=== PATIENT | female | born 1950 | race Caucasian/White ===

== ENCOUNTER → 2016-04-10 | Outpatient (CLI) | payer MEDICARE ==
[~2016-04-10] MED LIST: ALBUAER3 INH; ALPR.5 PO; BENA25TA3 PO; NAPR250T PO; PAXI10TA2 PO; PULM90IN INH; SYMB80AE INH; TIZA4CAP3 PO; TRAZ150T75 PO; TRAZ50TA12 PO
--- NOTE | 2016-04-13 09:22 | RSPPFT ---
DATE OF PROCEDURE: 04/10/16 COMMENTS: VOLUMES DYNAMIC: FVC and FEV1 severely reduced. FLOWS: FEV1% normal; FEF 25-75 severely reduced. IMPRESSION: This appears to be predominantly a severe restrictive defect but there is improvement post-bronchodilator so there may be an obstructive element. Clinical correlation is required and full lung volumes would be helpful.
== END ==
LOC: HRSP 12:07
PROVIDERS: ATTEND Family Medicine
DX: R05 Cough (principal)
CPT/HCPCS: 94060

== ENCOUNTER 2018-05-08 10:55 | Inpatient (IN) ==
[2018-05-08] MEDS ORDERED: Sod Chloride 0.9% Inj 1,000 ML IV.SIG ONE (11:28)
--- NOTE | 2018-05-08 11:55 | ED ---
HPI General Chief complaint: Weakness Stated complaint: Weakness Time Seen by Provider: 05/08/18 11:28 Source: patient, RN notes reviewed and old records reviewed Mode of arrival: EMS Limitations: no limitations History of Present Illness HPI Narrative: 67-year-old female presents to the emergency department via EMS for evaluation of slurred speech and generalized weakness. Patient states she went to her primary care doctor for her monthly visit today. At her visit, she was noted to have a blood pressure of 78/40 and had been complaining of slurred speech for the past 2-3 days. Her primary care physician Dr. Freeman sent her to the emergency department for CVA. The patient reports that she fell last night due to weakness. She denies any syncope. Patient denies any headache. She does report some blurry vision. No chest pain or shortness of breath. No abdominal pain. No nausea, vomiting, diarrhea. She states that both of her legs are weak and feel heavy. She does live alone. She has history of rheumatoid arthritis, anxiety. She does state that she drank 3 beers last night , but does not typically drink. She denies any current tobacco use, is a former smoker. No drug use. Moderate severity. Family history non-contributory. MD Complaint: Reports generalized weakness Onset (ago): day(s) (2-3) Duration: constant Location: Reports generalized Severity: moderate Relieving factors: none Exacerbating factors: none Associated symptoms: Reports other (Slurred speech, fall due to weakness); Denies chest pain, confusion, dark stools, diaphoresis, dysuria, easy bruising, fever/chills, headaches, loss of appetite, nausea/vomiting, myalgias, rash, shortness of breath and syncope Related Data Home Medications Medication Instructions Recorded Confirmed prednisone 5 mg PO DAILY 10/23/17 05/08/18 atorvastatin 10 mg PO QPM 03/11/18 05/08/18 clonazepam [Klonopin] 1 mg PO TID 03/11/18 05/08/18 hydroxychloroquine 200 mg PO BID 05/08/18 05/08/18 sertraline 200 mg PO DAILY 05/08/18 05/08/18 tizanidine 4 mg PO Q6-8H PRN 05/08/18 05/08/18 Allergies Allergy/AdvReac Type Severity Reaction Status Date / Time No Known Allergies Allergy Verified 03/11/18 11:21 Review of Systems ROS: all other systems reviewed are negative Constitutional Denies fever(s) Eyes Reports blurry vision ENT Denies nasal congestion Cardiovascular Denies chest pain Respiratory Denies cough Gastrointestinal Denies nausea Genitourinary Denies dysuria Musculoskeletal Denies back pain Neurologic Reports abnormal speech, Denies confusion and Reports weakness Psychiatric Denies confusion [facility] Medical History Medical History Aftercare following left ankle joint replacement surgery (Acute) Anxiety (Acute) Depression (Acute) History of fracture of ankle (Acute) History of thyroid nodule (Acute) Rheumatoid arthritis (Acute) Surgical History Surgical History History of 2 sections (Acute) History of bilateral oophorectomy (Acute) History of hernia repair (Acute) History of left hip replacement (Acute) Family History Family History Father No problems noted. Social History Social History Substance History: No History of Abuse Smoking Status: Former smoker Tobacco Type: Cigarettes How Often Do You Have a Drink Containing Alcohol: 2 to 4 times a month Recent Travel in [facility] within the Last 8 Weeks: No Recent Out of Country Travel within the Last 8 Weeks: No Immunization History Tetanus Immunization: <5 Years Exam Narrative Exam Narrative: GENERAL: Well-nourished, well-developed female patient, afebrile. Patient is alert and oriented x3 SKIN: Focused skin assessment warm/dry. HEAD: Normocephalic. Atraumatic EYES: No scleral icterus. No injection or drainage. EOM intact NECK: Supple, trachea midline. No JVD or lymphadenopathy. CARDIOVASCULAR: Regular rate and rhythm without murmurs, gallops, or rubs. Bilateral radial and pedal pulses are 2+ RESPIRATORY: Breath sounds equal bilaterally. No accessory muscle use. Lung sounds are clear to auscultation GASTROINTESTINAL: Abdomen soft, non-tender, nondistended. MUSCULOSKELETAL: No cyanosis, or edema. Bilateral upper extremity strength 5/ 5. Bilateral lower extremity strength 3/5. All extremities are neurovascularly intact. BACK: Nontender without obvious deformity. No CVA tenderness. NEUROLOGICAL: Awake and alert. Cranial nerves II through XII intact. Sensory grossly within normal limits. Five out of 5 muscle strength in all muscle groups. Speech is slurred. Possible slight deviation of tongue to the left. Finger to nose is normal bilaterally. Unable to do heel to gross bilaterally due to extreme leg weakness. Course Initial Documented Vital Signs Temperature 97.5 F L 05/08/18 11:10 Pulse Rate 60 05/08/18 11:10 Respiratory Rate 20 05/08/18 11:10 Blood Pressure 100/56 L 05/08/18 11:10 Pulse Oximetry 98 05/08/18 11:10 Last Documented Vital Signs Temperature 97.5 F L 05/08/18 11:10 Pulse Rate 60 05/08/18 11:48 Respiratory Rate 20 05/08/18 11:10 Blood Pressure 100/56 L 05/08/18 11:10 Pulse Oximetry 98 05/08/18 11:48 Medical Decision Making LUCIA Attestation LUCIA supervised visit: Yes Attestation: I was present with the advanced practitioner during the management of this patient. I discussed the case with the advanced practitioner and agree with the findings and plan as documented in their note except as noted below. 67yF presenting with bilateral lower extremity weakness and slurred speech. The patient believes her symptoms began yesterday but does not know specific time of onset. Denies confusion, difficulty with word finding, facial droop, upper extremity numbness/ tingling/ weakness, or head trauma. Her NIHSS on my exam was 5 (+2 for bilateral lower extremity drift/ hits bed, + 1 for mild to moderate dysarthria). The dry transfer man revealed normal sinus with heart rate in the mid 60s as interpreted by me. The dry transfer man was ordered secondary to stroke-like symptoms and to rule out arrhythmia. Her workup shows negative non-contrast CTH, minor bibasilar atelectasis on CR, labs essentially unremarkable (including negative EtOH). CTA head/ neck is pending. This patient will need further workup and possible neurology consultation. She understands and agrees with plan. Case discussed with FP resident. MARCELLUS Narrative Medical decision making narrative: 67-year-old female presents to the emergency department via EMS for hypotension, slurred speech, generalized weakness. IV access is obtained. EKG, CBC, CMP, magnesium, TSH, CK, troponin, PTT, PT/INR, UA are ordered and pending. Chest x-ray, CT of the head are ordered and pending. Patient is given normal saline [address] Escobar will resume care and disposition of patient. Medical Screen Exam Complete: Yes Emergency Medical Condition: Yes Differential Diagnosis Differential Diagnosis: CVA vs. TIA vs. electrolyte abnormality vs. UTI vs. dehydration vs. alcohol intoxication vs. intracranial hemorrhage vs. pneumonia vs. sepsis Medical Records Medical records reviewed: Yes I reviewed the patient's medical records. Lab Data Result diagrams: 05/08/18 11:48 05/08/18 11:48 Lab Results 05/08/18 05/08/18 05/08/18 Range/Units 11:48 11:48 11:48 WBC 7.0 (4.0-11.0) th/mm3 RBC 3.52 L (4.00-5.30) mil/mm3 Hgb 10.3 L (11.6-15.3) gm/dL Hct 30.4 L (35.0-46.0) % MCV 86.3 (80.0-100.0) fL MCH 29.3 (27.0-34.0) pg MCHC 34.0 (32.0-36.0) % RDW 13.7 (11.6-17.2) % Plt Count 214 (150-450) th/mm3 MPV 7.8 (7.0-11.0) fL Neut % (Auto) 73.0 H (16.0-70.0) % Lymph % (Auto) 15.0 (9.0-44.0) % [place] % (Auto) 8.4 H (0.0-8.0) % Eos % (Auto) 3.0 (0.0-4.0) % Baso % (Auto) 0.6 (0.0-2.0) % Neut # (Auto) 5.1 (1.8-7.7) th/mm3 Lymph # (Auto) 1.1 (1.0-4.8) th/mm3 [place] # (Auto) 0.6 (0.0-0.9) th/mm3 Eos # (Auto) 0.2 (0.0-0.4) th/mm3 Baso # (Auto) 0.0 (0.0-0.2) th/mm3 WBC Differential . Differential Comment Auto diff final PT 10.4 (9.8-11.6) sec INR 1.0 Ratio APTT (23.4-31.7) sec Sodium 138 (136-145) meq/L Potassium 4.2 (3.5-5.1) meq/L Chloride 109 H (98-107) meq/L Carbon Dioxide 22.1 (21.0-32.0) meq/L Anion Gap 7 (5-15) meq/L BUN 17 (7-18) mg/dL Creatinine 0.90 (0.50-1.00) mg/dL Estimated GFR 63 L (>89) mL/min Random Glucose 112 H (74-106) mg/dL Calcium 7.5 L (8.5-10.1) mg/dL Magnesium 1.8 (1.5-2.5) mg/dL Total Bilirubin 0.1 L (0.2-1.0) mg/dL AST 19 (15-37) U/L ALT 20 (10-53) U/L Alkaline Phosphatase 116 (45-117) U/L Total Creatine Kinase 136 (26-192) U/L Troponin I Less than 0.02 L (0.02-0.05) ng/mL Total Protein 6.3 L (6.4-8.2) g/dL Albumin 3.1 L (3.4-5.0) g/dL TSH 3.450 (0.358-3.740) uIU/mL Urine Color (Yellw/Straw) Urine Clarity (Clear) Urine pH (5.0-8.5) Ur Specific [place] (1.002-1.035) Urine Protein (Neg-Trace) mg/dL Urine Glucose (UA) (Negative) mg/dL Urine Ketones (Negative) mg/dL Urine Occult Blood (Negative) Urine Nitrate (Negative) Urine Bilirubin (Negative) Urine Urobilinogen (Less than 2) mg/dL Ur Leukocyte Esterase (Negative) Urine RBC (0-3) /hpf Urine WBC (0-5) /hpf Ur Squamous Epith Cells (0-5) /hpf Hyaline Casts (0-3) /lpf Urine Mucus (Occasional) /lpf Micro UA Comment Ur Microscopic Review Urine Culture Comments Serum Alcohol (0-5) mg/dL 05/08/18 05/08/18 05/08/18 Range/Units 11:48 11:48 12:11 WBC (4.0-11.0) th/mm3 RBC (4.00-5.30) mil/mm3 Hgb (11.6-15.3) gm/dL Hct (35.0-46.0) % MCV (80.0-100.0) fL MCH (27.0-34.0) pg MCHC (32.0-36.0) % RDW (11.6-17.2) % Plt Count (150-450) th/mm3 MPV (7.0-11.0) fL Neut % (Auto) (16.0-70.0) % Lymph % (Auto) (9.0-44.0) % [place] % (Auto) (0.0-8.0) % Eos % (Auto) (0.0-4.0) % Baso % (Auto) (0.0-2.0) % Neut # (Auto) (1.8-7.7) th/mm3 Lymph # (Auto) (1.0-4.8) th/mm3 [place] # (Auto) (0.0-0.9) th/mm3 Eos # (Auto) (0.0-0.4) th/mm3 Baso # (Auto) (0.0-0.2) th/mm3 WBC Differential Differential Comment PT (9.8-11.6) sec INR Ratio APTT 24.3 (23.4-31.7) sec Sodium (136-145) meq/L Potassium (3.5-5.1) meq/L Chloride (98-107) meq/L Carbon Dioxide (21.0-32.0) meq/L Anion Gap (5-15) meq/L BUN (7-18) mg/dL Creatinine (0.50-1.00) mg/dL Estimated GFR (>89) mL/min Random Glucose (74-106) mg/dL Calcium (8.5-10.1) mg/dL Magnesium (1.5-2.5) mg/dL Total Bilirubin (0.2-1.0) mg/dL AST (15-37) U/L ALT (10-53) U/L Alkaline Phosphatase (45-117) U/L Total Creatine Kinase (26-192) U/L Troponin I (0.02-0.05) ng/mL Total Protein (6.4-8.2) g/dL Albumin (3.4-5.0) g/dL TSH (0.358-3.740) uIU/mL Urine Color Yellow (Yellw/Straw) Urine Clarity Clear (Clear) Urine pH 6.0 (5.0-8.5) Ur Specific [place] 1.008 (1.002-1.035) Urine Protein Negative (Neg-Trace) mg/dL Urine Glucose (UA) Negative (Negative) mg/dL Urine Ketones Negative (Negative) mg/dL Urine Occult Blood Negative (Negative) Urine Nitrate Negative (Negative) Urine Bilirubin Negative (Negative) Urine Urobilinogen Less than 2 (Less than 2) mg/dL Ur Leukocyte Esterase Negative (Negative) Urine RBC Less than 1 (0-3) /hpf Urine WBC 1 (0-5) /hpf Ur Squamous Epith Cells <1 (0-5) /hpf Hyaline Casts 42 (0-3) /lpf Urine Mucus Few H (Occasional) /lpf Micro UA Comment Cath-culture not ind Ur Microscopic Review Not Reportable Urine Culture Comments Cath-cult not ind Serum Alcohol Less than 3 (0-5) mg/dL Imaging Data Radiologist's impression: Chest X-Ray 05/08/18 11:28 CONCLUSION: 1. Bibasilar streakiness is noted consistent with atelectasis and/or scarring. 2. Cardiomegaly. 3. Degenerative changes and scoliosis of the thoracolumbar spine. Head CT 05/08/18 11:28 CONCLUSION: 1. Negative CT Head non contrast. . . ECG Data Attestation: I personally reviewed and interpreted this ECG as follows: Interpretation: Rate: 62 BPM Rhythm: Sinus [place]: Normal Intervals: Normal intervals, no blocks, QTc 500 ms Q waves: None T waves: Upright, no inversions ST segments: No elevations or depressions Impression: Non-specific EKG, no previous EKG available for comparison. Discharge Plan Discharge Disposition Patient Disposition: ED Admit(ED Internal Use Only) Discharge Condition Condition: Stable Discharge Order Discharge Orders: ED Use Only Admit Order (Routine); Ordered 05/08/18 Ordered By: Tatiana Escobar Discharge Details Diagnosis: Slurred speech, Bilateral leg weakness Physicians Team ED Provider: Tatiana Escobar ED Midlevel Provider: Gini Yanez Primary Care Provider: UNKNOWN, Rxs /Orders / Referrals /Forms Prescriptions: No Action prednisone 1 mg Tablet 5 mg PO DAILY RF: 0 atorvastatin 10 mg Tablet 10 mg PO QPM RF: 0 clonazepam [Klonopin] 0.5 mg Tablet 1 mg PO TID RF: 0 tizanidine 4 mg Tablet 4 mg PO Q6-8H PRN (Reason: Pain) RF: 0 sertraline 100 mg Tablet 200 mg PO DAILY RF: 0 hydroxychloroquine 200 mg Tablet 200 mg PO BID RF: 0 Status ED Status: Pending Admission
[2018-05-08 12:06] LABS: Baso % (Auto) 0.6 % (0.0-2.0); Eos # (Auto) 0.2 th/mm3 (0.0-0.4); Hematocrit 30.4 % (35.0-46.0); Hemoglobin 10.3 gm/dL (11.6-15.3); Lymph # (Auto) 1.1 th/mm3 (1.0-4.8); Mean Corpuscular Hemoglobin 29.3 pg (27.0-34.0); Mean Corpuscular Volume 86.3 fL (80.0-100.0); Mean Platelet Volume 7.8 fL (7.0-11.0); Mono # (Auto) 0.6 th/mm3 (0.0-0.9); Mono % (Auto) 8.4 % (0.0-8.0); Neut # (Auto) 5.1 th/mm3 (1.8-7.7); Platelet Count 214 th/mm3 (150-450); Red Blood Count 3.52 mil/mm3 (4.00-5.30); Red Cell Distribution Width 13.7 % (11.6-17.2)
[2018-05-08 12:18] LABS: Prothrombin Time 10.4 sec (9.8-11.6)
[2018-05-08 12:23] LABS: Alanine Aminotransferase 20 U/L (10-53)
[2018-05-08 12:33] LABS: Alkaline Phosphatase 116 U/L (45-117); Creatine Kinase 136 U/L (26-192); Total Protein 6.3 g/dL (6.4-8.2)
[2018-05-08 12:34] LABS: Albumin 3.1 g/dL (3.4-5.0); Anion Gap 7 meq/L (5-15); Aspartate Aminotransferase 19 U/L (15-37); Blood Urea Nitrogen 17 mg/dL (7-18); Calcium 7.5 mg/dL (8.5-10.1); Carbon Dioxide 22.1 meq/L (21.0-32.0); Chloride 109 meq/L (98-107); Glomerular Filtration Rate 63 mL/min (>89); Glucose,Random 112 mg/dL (74-106); Magnesium 1.8 mg/dL (1.5-2.5); Potassium 4.2 meq/L (3.5-5.1); Sodium 138 meq/L (136-145)
[2018-05-08 12:51] LABS: Bilirubin,Urine Negative (Negative); Clarity,Urine Clear (Clear); Color,Urine Yellow (Yellw/Straw); Glucose,Urine (UA) Negative (Negative); Hyaline Casts,Urine 42 /lpf (0-3); Leukocyte Esterase,Urine Negative (Negative); Mucus,Urine Few /lpf (Occasional); Nitrite,Urine Negative (Negative); Specific Gravity,Urine 1.008 (1.002-1.035); Squamous Epithelial Cell,Urine <1 /hpf (0-5)
--- NOTE | 2018-05-08 12:56 | CT ---
EXAM DATE: 05/08/2018 12:36 PM EST AGE/SEX: 67 years / Female INDICATIONS: Weakness for six month slurred speech for three days, low blood pressure. CLINICAL DATA: This is the patient's initial encounter. Patient reports that signs and symptoms have been present for 1 day and indicates a pain score of 1/10. MEDICAL/SURGICAL HISTORY: Arthritis. section. oophorectomy hernia repair RADIATION DOSE: 56.35 CTDI (mGy) COMPARISON: [facility], CT HEAD W/O CONTRAST, 03/11/2018. . TECHNIQUE: CT of the head without contrast. Using automated exposure control and adjustment of the mA and/or kV according to patient size, radiation dose was kept as low as reasonably achievable to ob tain optimal diagnostic quality images. DICOM format image data is available electronically for revi ew and comparison. FINDINGS: Cerebrum: The ventricles are normal for age. No evidence of midline shift, mass lesion, hemorrhage or acute infarction. No extraaxial fluid collections are seen. Posterior Fossa: The cerebellum and brainstem are intact. The 4th ventricle is midline. The cerebe llopontine angle is unremarkable. Extracranial: The visualized portion of the orbits is intact. Skull: The calvaria is intact. No evidence of skull fracture. CONCLUSION: 1. Negative CT Head non contrast. . . Electronically signed by: Tristen Grigsby MD Board Certified Radiologist 05/08/2018 12:55 PM EST
--- NOTE | 2018-05-08 12:58 | XR ---
EXAM DATE: 05/08/2018 12:36 PM EST AGE/SEX: 67 years / Female INDICATIONS: Weakness. Patient states she is having slurred speech and heaviness in legs with diffic ulty lifting them. CLINICAL DATA: This is the patient's initial encounter. Patient reports that signs and symptoms have been present for 2 days and indicates a pain score of 0/10. MEDICAL/SURGICAL HISTORY: . Thyroid nodule. . section. Hernia repair. Bilateral ooph orectomy. Left hip repair. COMPARISON: No prior exams available for comparison. FINDINGS: The heart is enlarged. The pulmonary vascular pattern is normal. Bibasilar streakiness is noted consi stent with atelectasis and/or scarring. No focal alveolar consolidation is noted. Degenerative change s and scoliosis of thoracolumbar spine are noted. CONCLUSION: 1. Bibasilar streakiness is noted consistent with atelectasis and/or scarring. 2. Cardiomegaly. 3. Degenerative changes and scoliosis of the thoracolumbar spine. Electronically signed by: Tristen Grigsby MD Board Certified Radiologist 05/08/2018 12:57 PM EST
[2018-05-08 13:31] LABS: Amphetamine Screen,Urine Neg (Neg); Barbiturate Screen,Urine Neg (Neg); Cannabinoid Screen,Urine Neg (Neg); Cocaine Screen,Urine Neg (Neg)
[2018-05-08 13:36] LABS: Opiate Screen,Urine Neg (Neg)
--- NOTE | 2018-05-08 14:04 | P.HPFP ---
History of Present Illness Primary Care Physician: UNKNOWN <ZacharyLoydRuth - 05/09/18 14:49> UNKNOWN <Coy Amanda Mejia - 05/08/18 14:04> History of Present Illness: 67 yr old F with rheumatoid arthritis, PTSD, anxiety presents to the ED from primary care office for neuro symptoms. Patient was seen by Dr. Freeman, PCP, this morning for check up. Patient had low blood pressure or 72/40, problems with speech, decreased right nasolabial fold, and b/l lower extremity weakness. Patient was sent over immediately to the ED for stroke workup. Reports that she was confused when she woke up this morning. States that she last felt normal around possibly 8am. She felt exhausted and weak. Didn't make much of it since she was going to see her primary doctor. She drove to the office, but describes that it was difficult. She has felt dizzy the last couple of days. Patient is alert and oriented. Able to answer questions appropriately and follow commands. Speech has improved, but still slow. Still reports b/l leg weakness. Denies ROUSE, vision changes, CP, SOB, N/V, numbness/tingling and abdominal pain. PMHx: RA on daily prednisone Anxiety Insomnia PTSD Onychomycosis Muscle spasms PSHx: h/o ankles surgery, left hip replacement Meds: clonazepam 1mg TID hydroxychloroquine 200mg BID Pravastatin 10mg daily Prednisone 5mg daily Sertraline 100mg BID Tizanidine 4mg q8h as needed Allergies: NKDA FHx: father in 2017 SHx: current smoker 1 cigarette in 2 weeks <Coy Keaton Mejian Broderick 05/08/18 15:50> - Diagnosis (1) Neurocognitive deficits (2) Rheumatoid arthritis (3) Anxiety <Ruth Sharma - 05/09/18 14:49> (1) Neurocognitive deficits (2) Rheumatoid arthritis (3) Anxiety <Coy Keaton Mejiaadam Broderick 05/08/18 15:52> Inpatient Certification: I certify that the inpatient services were ordered in accordance with Medicare regulations governing the order. 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 <Coy Keaton Mejiaadam Quick 05/08/18 14:04> - Medical History Medical History: Medical History (Last Reviewed 05/08/18 @ 13:05 by Tatiana Escobar DO) Aftercare following left ankle joint replacement surgery Anxiety Depression History of fracture of ankle History of thyroid nodule Rheumatoid arthritis <Ruth Sharma Bessie 05/09/18 14:49> Medical History (Last Reviewed 05/08/18 @ 13:05 by Tatiana Escobar DO) Aftercare following left ankle joint replacement surgery Anxiety Depression History of fracture of ankle History of thyroid nodule Rheumatoid arthritis <Coy Keaton Mejiaadam Broderick 05/08/18 14:04> - Surgical History Surgical History: Surgical History (Last Reviewed 05/08/18 @ 13:05 by Tatiana Escobar DO) History of 2 sections History of bilateral oophorectomy History of hernia repair History of left hip replacement <ZacharyRuth martino Bessie 05/09/18 14:49> Surgical History (Last Reviewed 05/08/18 @ 13:05 by Tatiana Escobar DO) History of 2 sections History of bilateral oophorectomy History of hernia repair History of left hip replacement <Coy Keaton Mejiaadam Broderick 05/08/18 14:04> - Family History Family History: Family History (Last Reviewed 05/08/18 @ 13:05 by Tatiana Escobar DO) Father No problems noted. <ZacharyRuth Bessie Ellsworth 05/09/18 14:49> Family History (Last Reviewed 05/08/18 @ 13:05 by Tatiana Escobar DO) Father No problems noted. <Coy JackieAmandajuan Quick 05/08/18 14:04> - Social History I have reviewed the patient's Social History: Yes <Coy JackieAmanda Broderick Ynes 05/08 15:30> - Tobacco History Tobacco Use In Past 30 Days: No <Amanda Archer 05/08/18 14:04> Smoking Status: Former smoker <Amanda Archer 05/08/18 14:04> Tobacco Type: Cigarettes <Amanda Archer 05/08/18 14:04> - Alcohol History How Often Do You Have a Drink Containing Alcohol: 2 to 4 times a month <Amanda Archer 05/08/18 14:04> - Substance Use History Substance History: No History of Abuse <Amanda Archer 05/08/18 14:04> - Travel History Recent Travel in the [facility] Within the Last 8 Weeks: No <Amanda Archer 14:04> Recent Travel Out of the Country Within the Last 8 Weeks: No <Amanda Archer 05/08/18 14:04> - Immunization History Tetanus Immunization: <5 Years <Amanda Archer 05/08/18 14:04> Medications and Allergies Allergies Allergy/AdvReac Type Severity Reaction Status Date / Time No Known Allergies Allergy Verified 03/11/18 11:21 <Ruth Sharma - 05/09/18 14:49> Home Medications Medication Instructions Recorded Confirmed Type prednisone 5 mg PO DAILY 10/23/17 05/08/18 History atorvastatin 10 mg PO QPM 03/11/18 05/08/18 History clonazepam [Klonopin] 1 mg PO TID 03/11/18 05/08/18 History hydroxychloroquine 200 mg PO BID 05/08/18 05/08/18 History sertraline 200 mg PO DAILY 05/08/18 05/08/18 History tizanidine 4 mg PO Q6-8H PRN 05/08/18 05/08/18 History <Ruth Sharma - 05/09/18 14:49> Active Medications: Active Medications Aspirin (Aspirin) 325 mg PO DAILY [facility] Last Admin: 05/09/18 08:48 Dose: 325 mg Clonazepam (Klonopin) 1 mg PO TID [facility] Last Admin: 05/09/18 13:19 Dose: 1 mg Dextrose (D50w Vial) 50 ml IV.PUSH UNSCH PRN PRN Reason: PER HYPOGLYCEMIA PROTOCOL Enoxaparin Sodium (Lovenox Inj) 40 mg SQ Q24H [facility] Last Admin: 05/09/18 09:48 Dose: 40 mg Glucagon (Glucagon Inj) 1 mg OTHER UNSCH PRN PRN Reason: for Hypoglycemia Protocol Hydroxychloroquine Sulfate (Plaquenil) 200 mg PO BID [facility] Last Admin: 05/09/18 09:48 Dose: 200 mg Sodium Chloride (Ns Inj) 1,000 mls @ 70 mls/hr IV.CONT .[id number] [facility] Last Admin: 05/09/18 09:30 Dose: 70 mls/hr Insulin Aspart (Novolog Insulin Correctional Sugar Inj) 0 unit SQ ACHS [facility]; Protocol Last Admin: 05/09/18 13:23 Dose: Not Given Pravastatin Sodium (Pravachol) 40 mg PO HS [facility] Prednisone (Deltasone) 5 mg PO DAILY [facility] Last Admin: 05/09/18 09:47 Dose: 5 mg Sertraline HCl (Zoloft) 200 mg PO HS [facility] Last Admin: 05/08/18 23:42 Dose: 200 mg Sodium Chloride (Ns Flush) 2 ml IV.FLUSH BID [facility] Last Admin: 05/09/18 08:49 Dose: 2 ml Sodium Chloride (Ns Flush) 2 ml IV.FLUSH PRN PRN PRN Reason: FLUSH AFTER USING IV ACCESS Tizanidine HCl (Zanaflex) 4 mg PO Q6HR PRN PRN Reason: PAIN 1-10 Last Admin: 05/08/18 23:43 Dose: 4 mg <Ruth Sharma - 05/09/18 14:49> Active Medications Sodium Chloride (Ns Flush) 2 ml IV.FLUSH PRN PRN PRN Reason: FLUSH AFTER USING IV ACCESS <Amanda Archer T - 05/08/18 14:04> Exam Vital signs: Vital Signs 05/08/18 16:00 05/08/18 20:00 05/08/18 22:50 Temperature 97.9 F 97.8 F Pulse Rate 66 87 81 Respiratory Rate 16 20 Blood Pressure 113/73 109/71 Pulse Oximetry 100 97 05/09/18 00:00 05/09/18 04:00 05/09/18 08:00 Temperature 97.7 F 97.9 F 97.6 F Pulse Rate 67 99 H 77 Respiratory Rate 20 18 16 Blood Pressure 112/78 124/75 121/76 Pulse Oximetry 97 95 100 05/09/18 09:30 05/09/18 11:58 Temperature 98.1 F Pulse Rate 82 Respiratory Rate 15 Blood Pressure 142/72 H Pulse Oximetry 99 97 Intake & Output 05/08/18 05/09/18 05/09/18 18:59 06:59 18:59 Intake Total 1000 / 1000 1999 Balance 1000 / 1000 1999 Weight 72.575 kg 72.575 kg Intake: IV 1000 / 1000 1999 NS Inj 1,000 ML @ 70 mls/hr IV. 1999 CONT .[id number] E[facility] Rx#:[id number] NS Inj 1,000 ML @ Wide Open IV. 1000 / 1000 SIG BOLUS ONE Rx#:[id number] Other: # Voids 3 Weight On Admission 72.575 kg <Ruth Sharma M - 05/09/18 14:49> Vital Signs 05/08/18 11:10 05/08/18 11:48 05/08/18 13:43 Temperature 97.5 F L Pulse Rate 60 60 68 Respiratory Rate 20 18 Blood Pressure 100/56 L 115/70 Pulse Oximetry 98 98 96 Intake & Output 05/07/18 05/08/18 05/08/18 18:59 06:59 18:59 Intake Total 1000 / 1000 Balance 1000 / 1000 Weight 90.718 kg Intake: IV 1000 / 1000 NS Inj 1,000 ML @ Wide Open IV. 1000 / 1000 SIG BOLUS ONE Rx#:[id number] <Van R2,Amanda Broderick T - 05/08/18 14:04> - Constitutional no acute distress <Van R2,Amanda Broderick T - 05/08/18 15:30> - Routine HEENT Exam Head: Present: normocephalic, atraumatic <Van R2,Amanda Broderick T - 05/08/18 15:30 > Eye: Present: EOMI, PERRL, normal accommodation <Van R2,Amanda Broderick T - 15:30> - Routine Neck Exam Present: supple, full ROM <Van R2,Amanda Broderick T - 05/08/18 15:30> - Routine Respiratory Exam Present: CTA bilaterally. Absent: wheezes, crackles <Van R2,Amanda Broderick T 15:30> - Routine Cardiovascular Exam Present: RRR, S1, S2. Absent: murmur, gallop, rubs <Amanda Archer 15:30> - Routine Abdominal Exam Present: soft, normoactive bowel sounds. Absent: tenderness, distended <Amanda Archer 05/08/18 15:30> - Routine Extremities Exam Absent: cyanosis, clubbing, edema <Amanda Archer 05/08/18 15:30> - Routine Neurological Exam Present: alert, oriented X3, CN II-XII intact. Absent: sensory deficit, pronator drift, altered mental status <Amanda Archer 05/08/18 15:30> slowed speech, 4/5 in lower extremities b/l <Amanda Archer 05/08/18 15:40> Results - Labs Result diagrams: 05/08/18 11:48 05/08/18 11:48 <Ruth Sharma - 05/09/18 14:49> Abnormal lab results 05/08/18 05/08/18 05/08/18 Range/Units 11:48 11:48 18:09 POC Glucose 116 H (68-110) mg/dl Hemoglobin A1c 6.1 H (4.3-6.0) % Triglycerides 244 H (42-150) mg/dL <Ruth Sharma - 05/09/18 14:49> Abnormal lab results 05/08/18 05/08/18 05/08/18 Range/Units 11:48 11:48 12:11 RBC 3.52 L (4.00-5.30) mil/mm3 Hgb 10.3 L (11.6-15.3) gm/dL Hct 30.4 L (35.0-46.0) % Neut % (Auto) 73.0 H (16.0-70.0) % Sandoval % (Auto) 8.4 H (0.0-8.0) % Chloride 109 H (98-107) meq/L Estimated GFR 63 L (>89) mL/min Random Glucose 112 H (74-106) mg/dL Calcium 7.5 L (8.5-10.1) mg/dL Total Bilirubin 0.1 L (0.2-1.0) mg/dL Troponin I Less than 0.02 L (0.02-0.05) ng/mL Total Protein 6.3 L (6.4-8.2) g/dL Albumin 3.1 L (3.4-5.0) g/dL Urine Mucus Few H (Occasional) /lpf Short CBC 05/08/18 Range/Units 11:48 WBC 7.0 (4.0-11.0) th/mm3 Hgb 10.3 L (11.6-15.3) gm/dL Hct 30.4 L (35.0-46.0) % Plt Count 214 (150-450) th/mm3 BMP 05/08/18 11:48 Sodium 138 Potassium 4.2 Chloride 109 H Carbon Dioxide 22.1 BUN 17 Creatinine 0.90 Calcium 7.5 L Cardiac Enzymes 05/08/18 Range/Units 11:48 Total Creatine Kinase 136 (26-192) U/L Troponin I Less than 0.02 L (0.02-0.05) ng/mL Liver Function 05/08/18 Range/Units 11:48 Total Bilirubin 0.1 L (0.2-1.0) mg/dL AST 19 (15-37) U/L ALT 20 (10-53) U/L Alkaline Phosphatase 116 (45-117) U/L Albumin 3.1 L (3.4-5.0) g/dL Urine 05/08/18 Range/Units 12:11 Urine Color Yellow (Yellw/Straw) Urine Clarity Clear (Clear) Urine pH 6.0 (5.0-8.5) Ur Specific [place] 1.008 (1.002-1.035) Urine Protein Negative (Neg-Trace) mg/dL Urine Glucose (UA) Negative (Negative) mg/dL <Amanda Archer T - 05/08/18 14:04> - Imaging Impressions Neck CTA 05/08/18 12:53 CONCLUSION: 1. Negative CTA Carotid. <Ruth Sharma - 05/09/18 14:49> Impressions Chest X-Ray 05/08/18 11:28 CONCLUSION: 1. Bibasilar streakiness is noted consistent with atelectasis and/or scarring. 2. Cardiomegaly. 3. Degenerative changes and scoliosis of the thoracolumbar spine. Head CT 05/08/18 11:28 CONCLUSION: 1. Negative CT Head non contrast. . . <Amanda Archer T - 05/08/18 14:04> [facility]: Moderate/High Risk (score >= 2) <Amanda Archer T - 05/08/18 15:40> Caprini Risk Assessment Model: Point Value = 1 Point Value = 2 Point Value = 3 Point Value = 5 Age 41-60 Minor surgery BMI > 25 kg/m2 Swollen legs Varicose veins or History of unexplained or recurrent spontaneous Oral contraceptives or hormone replacement Sepsis (< 1 month) Serious lung disease, including pneumonia (< 1 month) Abnormal pulmonary function Acute myocardial infarction Congestive heart failure (< 1 month) History of inflammatory bowel disease Medical patient at bed rest Age 61-74 Arthroscopic surgery Major open surgery (> 45 min) Laparoscopic surgery (> 45 min) Malignancy Confined to bed (> 72 hours) Immobilizing plaster cast Central venous access Age >= 75 History of VTE Family history of VTE Factor V Leiden Prothrombin [id number] Lupus anticoagulant Anticardiolipin antibodies Elevated serum homocysteine Heparin-induced thrombocytopenia Other congenital or acquired thrombophilia Stroke (< 1 month) Elective arthroplasty Hip, pelvis, or leg fracture Acute spinal cord injury (< 1 month) <Ruth Sharma - 05/09/18 14:49> Point Value = 1 Point Value = 2 Point Value = 3 Point Value = 5 Age 41-60 Minor surgery BMI > 25 kg/m2 Swollen legs Varicose veins or History of unexplained or recurrent spontaneous Oral contraceptives or hormone replacement Sepsis (< 1 month) Serious lung disease, including pneumonia (< 1 month) Abnormal pulmonary function Acute myocardial infarction Congestive heart failure (< 1 month) History of inflammatory bowel disease Medical patient at bed rest Age 61-74 Arthroscopic surgery Major open surgery (> 45 min) Laparoscopic surgery (> 45 min) Malignancy Confined to bed (> 72 hours) Immobilizing plaster cast Central venous access Age >= 75 History of VTE Family history of VTE Factor V Leiden Prothrombin [id number] Lupus anticoagulant Anticardiolipin antibodies Elevated serum homocysteine Heparin-induced thrombocytopenia Other congenital or acquired thrombophilia Stroke (< 1 month) Elective arthroplasty Hip, pelvis, or leg fracture Acute spinal cord injury (< 1 month) <Coy JackieAmanda Broderick T - 05/08/18 15:40> Prophylaxis Regimen: Total Risk Factor Score Risk Level Prophylaxis Regimen 0-1 Low Early ambulation 2 Moderate Order ONE of the following: *Sequential Compression Device (SCD) *Heparin 5000 units SQ BID 3-4 Higher Order ONE of the following medications: *Heparin 5000 units SQ TID *Enoxaparin/Lovenox 40 mg SQ daily (WT < 150 kg, CrCl > 30 mL/min) *Enoxaparin/Lovenox 30 mg SQ daily (WT < 150 kg, CrCl > 10-29 mL/min) *Enoxaparin/Lovenox 30 mg SQ BID (WT < 150 kg, CrCl > 30 mL/min) AND/OR *Sequential Compression Device (SCD) 5 or more Highest Order ONE of the following medications: *Heparin 5000 units SQ TID (Preferred with Epidurals) *Enoxaparin/Lovenox 40 mg SQ daily (WT < 150 kg, CrCl > 30 mL/min) *Enoxaparin/Lovenox 30 mg SQ daily (WT < 150 kg, CrCl > 10-29 mL/min) *Enoxaparin/Lovenox 30 mg SQ BID (WT < 150 kg, CrCl > 30 mL/min) AND *Sequential Compression Device (SCD) <Ruth Sharma - 05/09/18 14:49> Total Risk Factor Score Risk Level Prophylaxis Regimen 0-1 Low Early ambulation 2 Moderate Order ONE of the following: *Sequential Compression Device (SCD) *Heparin 5000 units SQ BID 3-4 Higher Order ONE of the following medications: *Heparin 5000 units SQ TID *Enoxaparin/Lovenox 40 mg SQ daily (WT < 150 kg, CrCl > 30 mL/min) *Enoxaparin/Lovenox 30 mg SQ daily (WT < 150 kg, CrCl > 10-29 mL/min) *Enoxaparin/Lovenox 30 mg SQ BID (WT < 150 kg, CrCl > 30 mL/min) AND/OR *Sequential Compression Device (SCD) 5 or more Highest Order ONE of the following medications: *Heparin 5000 units SQ TID (Preferred with Epidurals) *Enoxaparin/Lovenox 40 mg SQ daily (WT < 150 kg, CrCl > 30 mL/min) *Enoxaparin/Lovenox 30 mg SQ daily (WT < 150 kg, CrCl > 10-29 mL/min) *Enoxaparin/Lovenox 30 mg SQ BID (WT < 150 kg, CrCl > 30 mL/min) AND *Sequential Compression Device (SCD) <Amanda Archer T - 05/08/18 14:04> Assessment and Plan - Assessment (1) Neurocognitive deficits Code(s): R29.818 - Other symptoms and signs involving the nervous system; R41.89 - Other symptoms and signs involving cognitive functions and awareness Status: Acute (2) Rheumatoid arthritis Code(s): M06.9 - Rheumatoid arthritis, unspecified Status: Acute (3) Anxiety Code(s): F41.9 - Anxiety disorder, unspecified Status: Acute <Ruth Sharma Bessie - 05/09/18 14:49> (1) Neurocognitive deficits Code(s): R29.818 - Other symptoms and signs involving the nervous system; R41.89 - Other symptoms and signs involving cognitive functions and awareness Status: Acute (2) Rheumatoid arthritis Code(s): M06.9 - Rheumatoid arthritis, unspecified Status: Acute (3) Anxiety Code(s): F41.9 - Anxiety disorder, unspecified Status: Acute <Amanda Archer T - 05/08/18 15:52> - Assessment and Plan 67 yr old F with rheumatoid arthritis, PTSD, anxiety presents to the ED from primary care office for neuro symptoms. TIA/Stroke -Consult to neurology, appreciate recommendations -CT of the head showed no acute hemorrhage -CTA of the head and neck negative -MR head ordered -Echo ordered -Head of the bed flat for 12 hours -Continuous telemetry -Neurochecks every 2 hours for the next 12 hours and then every 4 hours -ASA 325 daily -Statin therapy- patient previously unable to tolerate atorvastatin due to muscle pain, has been tolerating pravastatin 10mg at home, will increase to 40mg -HbA1c and lipid panel ordered -Speech therapy: Evaluate and treat -Bedside swallow study ordered -Permissive hypertension to 220/120 for 24h -IV Vasotec as needed -PT/OT/ST Rheumatoid Arthritis -hydroxychloroquine 200mg PO BID -Prednisone 5mg PO daily Anxiety -Continue clonazepam 1mg PO TID Fluids: NS at 70 cc/h Electrolytes: monitor and replete as needed Nutrition: N.p.o. until patient passes swallow study GI prophylaxis: not indicated VTE prophylaxis: SCDs, start lovenox tomorrow <Amanda Archer T - 05/08/18 15:53> - Attending Attestation The exam, history, and the medical decision-making described in the above note were completed with the assistance of the resident physician. I reviewed and agree with the findings presented. I attest that I had a [id number] encounter with the patient on the same day, and personally performed and documented my assessment and findings in the medical record. she was seen in the ED by me at the time of admission <Ruth Sharma - 05/09/18 14:49>
[2018-05-08] MEDS ORDERED: Dextrose 50% in Water 50 ML Vial IV.PUSH PRN (14:05)
--- NOTE | 2018-05-08 14:46 | CT ---
EXAM DATE: 05/08/2018 2:42 PM EST AGE/SEX: 67 years / Female INDICATIONS: Weakness for 6 months, slurred speech for 3 days. CLINICAL DATA: This is the patient's initial encounter. Patient reports that signs and symptoms have been present for 3 days and indicates a pain score of 0/10. MEDICAL/SURGICAL HISTORY: None. None. RADIATION DOSE: 26.69 CTDI (mGy) ; Combined studies COMPARISON: . TECHNIQUE: Volumetric scanning was performed using a multi-row detector CT scanner during bolus infu patrick of 73 ml Omnipaque 350 (iohexol) nonionic water-soluble contrast as a cumulative dose for multi ple exams. The data was post processed with a variety of visualization algorithms including full vo lume maximum intensity projection, multi-planar sliding thin slab reformation, curved planar reformat ion, and surface rendering techniques. Using automated exposure control and adjustment of the mA and /or kV according to patient size, radiation dose was kept as low as reasonably achievable to obtain o ptimal diagnostic quality images. DICOM format image data is available electronically for review and comparison. FINDINGS: There is excellent visualization of the major intracranial arteries out to the second-order branch ve ssels. There is no evidence for aneurysm, vessel truncation or stenosis, and no evidence for vascula r malformation. CONCLUSION: 1. Negative CTA Head. . . Electronically signed by: Tristen Grigsby MD Board Certified Radiologist 05/08/2018 2:45 PM EST
--- NOTE | 2018-05-08 15:17 | CT ---
EXAM DATE: 05/08/2018 2:46 PM EST AGE/SEX: 67 years / Female INDICATIONS: Weakness for 6 months, slurred speech for 3 days. CLINICAL DATA: This is the patient's initial encounter. Patient reports that signs and symptoms have been present for 3 days and indicates a pain score of 0/10. MEDICAL/SURGICAL HISTORY: None. None. RADIATION DOSE: 26.69 CTDI (mGy) ; Combined studies COMPARISON: [facility], CT CERVICAL SPINE W/O CONTRAST, 03/11/2018. . TECHNIQUE: Volumetric scanning was performed using a multirow detector CT scanner during bolus infus ion of 70 ml Omnipaque 350 (iohexol) nonionic water-soluble contrast as a cumulative dose for multip le exams. The data was postprocessed with a variety of visualization algorithms including full-volu me maximum intensity projection, multiplanar sliding thin-slab reformation, curved-planar reformation , and surface-rendering techniques. Using automated exposure control and adjustment of the mA and/or kV according to patient size, radiation dose was kept as low as reasonably achievable to obtain opti mal diagnostic quality images. DICOM format image data is available electronically for review and co mparison. FINDINGS: Aortic Arch: There is a three-vessel origin of the great vessels from the aorta. No evidence of ost ial narrowing Right Carotid: The common carotid artery is intact. The carotid bulb has a normal configuration wit hout ulceration or narrowing. The internal carotid artery lumen is smooth without stenosis. The ext ernal carotid artery is intact. Left Carotid: The common carotid artery is intact. The carotid bulb has a normal configuration with out ulceration or narrowing. The internal carotid artery lumen is smooth without stenosis. The exte rnal carotid artery is intact. Vertebrals: The vertebral arteries have a symmetric diameter. No stenotic lesions are seen. Percent stenosis is calculated using the diameter of the stenotic region over the diameter of the nor mal distal internal carotid artery. CONCLUSION: 1. Negative CTA Carotid. Electronically signed by: Tristen Grigsby MD Board Certified Radiologist 05/08/2018 3:15 PM EST
[2018-05-08 17:01] LABS: Hemoglobin A1c 6.1 % (4.3-6.0)
[2018-05-08] MEDS: Sod Chloride 0.9% Inj 1,000 ML IV.CONT SCH (17:27)
[2018-05-08] MEDS: clonazePAM 1 MG Tablet PO SCH (18:06)
[2018-05-08] MEDS: Insulin NovoLOG Aspart Correctional Sugar Inj SQ SCH ×2 (18:09→22:09)
--- NOTE | 2018-05-08 19:18 | MB ---
cc: Uriel Davis MD, PhD DATE: 05/08/2018 REASON FOR REQUEST: Rule out stroke. HISTORY OF PRESENT ILLNESS: Ms. Shah is a very nice 67-year-old woman who this morning developed sudden onset of dizziness as well as weakness of both legs, could barely lift the legs up, slurred speech, right facial droop. She was seen by her primary care physician this morning, had hypotension with 72/40 blood pressure. Her symptoms have resolved, currently back to normal. Denies headache or other symptoms. No double vision. PAST MEDICAL HISTORY: She has a history of anxiety, depression, thyroid nodule, rheumatoid arthritis, , oophorectomy bilaterally, hernia repair, left hip replacement surgery, ankle surgery and hip replacement surgery. HOME MEDICATIONS: 1. Clonazepam 1 mg t.i.d. 2. Hydroxychloroquine 200 mg b.i.d. 3. Pravastatin 10 mg daily. 4. Prednisone 5 mg daily. 5. Sertraline 100 mg daily. 6. Tizanidine 4 mg every 8 hours as needed. PHYSICAL EXAMINATION: VITAL SIGNS: Blood pressure is 115/70, pulse 68, respirations 18, and temperature 97.9 degrees Fahrenheit. NEUROLOGIC: Higher cortical functions normal. Cranial nerves 2-12 are over in detail. Motor exam is 5/5 strength of all groups in both upper and lower extremities. There is no drift. Fine motor skills are normal. Reflexes are symmetric. Sensory exam is intact. DIAGNOSTIC DATA: Neck CT angiogram is normal. CTA brain is normal. Basal artery is intact. CT brain is normal as well. EKG: Normal sinus rhythm. LABORATORY DATA: White count 7000, hemoglobin 10.3, hematocrit 30%, platelets 214,000. PT 10.4, INR 1, aPTT 24.3. Sodium is 138, potassium 4.2, chloride 109, CO2 of 22, BUN is 17, creatinine 0.9, GFR 63, glucose 112. IMPRESSION: Possible vertebrobasilar attack versus the effects of hypotension, now resolved. RECOMMENDATIONS: For the possible TIA will start aspirin 325 mg daily. Also check a lipid panel and echocardiogram. We will also get an MRI of the brain rule out stroke. Uriel Davis MD, PhD JASS/alta , 06:12 PM , 06:19 PM
[2018-05-08 19:25] LABS: Chol/HDL Ratio 3.64 Ratio; HDL Cholesterol 42.5 mg/dL (40.0-60.0)
[2018-05-08] MEDS: Hydroxychloroquine 200 MG Tablet PO SCH (22:00)
[2018-05-08] MEDS ORDERED: Sertraline 100 MG Tablet PO SCH (22:30)
[2018-05-09] MEDS: Sod Chloride 0.9% Inj 1,000 ML IV.CONT SCH ×2 (08:49→09:30)
[2018-05-09] MEDS ORDERED: Sertraline 100 MG Tablet PO SCH ×2 (09:00→21:00)
[2018-05-09] MEDS ORDERED: predniSONE 5 MG Tablet PO SCH (09:00)
[2018-05-09] MEDS ORDERED: Enoxaparin Inj 40 MG/0.4 ML Syringe SQ SCH (09:00)
[2018-05-09] MEDS ORDERED: Aspirin 325 MG Tablet PO SCH (09:00)
[2018-05-09] MEDS: Insulin NovoLOG Aspart Correctional Sugar Inj SQ SCH ×2 (09:45→13:23)
[2018-05-09] MEDS: Hydroxychloroquine 200 MG Tablet PO SCH (09:48)
[2018-05-09] MEDS: clonazePAM 1 MG Tablet PO SCH ×2 (09:48→13:19)
--- NOTE | 2018-05-09 11:40 | P.HPFP ---
History of Present Illness Primary Care Physician: UNKNOWN History of Present Illness: 67 yr old F with rheumatoid arthritis, PTSD, anxiety presented to the ED from primary care office for neuro symptoms. Patient was seen by Dr. Freeman, PCP, this morning for check up. Patient had low blood pressure or 72/40, problems with speech, decreased right nasolabial fold, and b/l lower extremity weakness. Patient was sent over immediately to the ED for stroke workup. Reports that she was confused when she woke up that morning. States that she last felt normal around possibly 8am. Then she felt exhausted and weak. Didn't make much of it since she was going to see her primary doctor. She drove to the office, but describes that it was difficult. She has felt dizzy the last couple of days. Patient is alert and oriented. Able to answer questions appropriately and follow commands. Speech has improved, but still slow. Still reports b/l leg weakness. Denies ROUSE, vision changes, CP, SOB, N/V, numbness/tingling and abdominal pain. today, she reports being completely back to normal. She states she was ambulating all over the [place] and eating and speaking normally. She requests discharge home today. She refuses an MRI as her prior Dr told her not to get one with her metal in her legs. PMHx: RA on daily prednisone Anxiety Insomnia PTSD Onychomycosis Muscle spasms PSHx: h/o ankles surgery, left hip replacement Meds: clonazepam 1mg TID hydroxychloroquine 200mg BID Pravastatin 10mg daily Prednisone 5mg daily Sertraline 100mg BID Tizanidine 4mg q8h as needed Allergies: NKDA FHx: father in 2018 SHx: current smoker 1 cigarette in 2 weeks - Diagnosis (1) Neurocognitive deficits (2) Rheumatoid arthritis (3) Anxiety Inpatient Certification: I certify that the inpatient services were ordered in accordance with Medicare regulations governing the order. This includes certification that hospital inpatient services are reasonable and necessary and in the case of services not specified as inpatient-only under 42 CFR 419.22(n), that they are appropriately provided as inpatient services in accordance to with the 2-midnight benchmark under 43 CFR 412.3(e) Estimated Total Length of Stay (Days): 2 Plans for Post Hospital Care: Not yet determined Review of Systems see H&P from yesterday [facility] - History History Provided By: Patient - Medical History Medical History: Medical History (Last Reviewed 05/09/18 @ 09:21 by Donnell Krishnan) Aftercare following left ankle joint replacement surgery Anxiety Depression History of fracture of ankle History of thyroid nodule Rheumatoid arthritis - Surgical History Surgical History: Surgical History (Last Reviewed 05/09/18 @ 09:21 by Donnell Krishnan) History of 2 sections History of bilateral oophorectomy History of hernia repair History of left hip replacement - Family History Family History: Family History (Last Reviewed 05/08/18 @ 13:05 by Tatiana Escobar DO) Father No problems noted. - Tobacco History Second Hand Smoke Exposure: No Tobacco Use In Past 30 Days: No Smoking Status: Former smoker Tobacco Type: Cigarettes - Alcohol History How Often Do You Have a Drink Containing Alcohol: 2 to 4 times a month - Substance Use History Substance History: No History of Abuse - Travel History Recent Travel in the [facility] Within the Last 8 Weeks: No Recent Travel Out of the Country Within the Last 8 Weeks: No - Immunization History Tetanus Immunization: <5 Years Medications and Allergies Active Medications: Active Medications Aspirin (Aspirin) 325 mg PO DAILY [facility] Last Admin: 05/09/18 08:48 Dose: 325 mg Clonazepam (Klonopin) 1 mg PO TID [facility] Last Admin: 05/09/18 09:48 Dose: 1 mg Dextrose (D50w Vial) 50 ml IV.PUSH UNSCH PRN PRN Reason: PER HYPOGLYCEMIA PROTOCOL Enoxaparin Sodium (Lovenox Inj) 40 mg SQ Q24H [facility] Last Admin: 05/09/18 09:48 Dose: 40 mg Glucagon (Glucagon Inj) 1 mg OTHER UNSCH PRN PRN Reason: for Hypoglycemia Protocol Hydroxychloroquine Sulfate (Plaquenil) 200 mg PO BID [facility] Last Admin: 05/09/18 09:48 Dose: 200 mg Sodium Chloride (Ns Inj) 1,000 mls @ 70 mls/hr IV.CONT .[id number] [facility] Last Admin: 05/09/18 09:30 Dose: 70 mls/hr Insulin Aspart (Novolog Insulin Correctional Sugar Inj) 0 unit SQ ACHS [facility]; Protocol Last Admin: 05/09/18 09:45 Dose: Not Given Pravastatin Sodium (Pravachol) 40 mg PO HS [facility] Prednisone (Deltasone) 5 mg PO DAILY [facility] Last Admin: 05/09/18 09:47 Dose: 5 mg Sertraline HCl (Zoloft) 200 mg PO HS [facility] Last Admin: 05/08/18 23:42 Dose: 200 mg Sodium Chloride (Ns Flush) 2 ml IV.FLUSH BID [facility] Last Admin: 05/09/18 08:49 Dose: 2 ml Sodium Chloride (Ns Flush) 2 ml IV.FLUSH PRN PRN PRN Reason: FLUSH AFTER USING IV ACCESS Tizanidine HCl (Zanaflex) 4 mg PO Q6HR PRN PRN Reason: PAIN 1-10 Last Admin: 05/08/18 23:43 Dose: 4 mg Allergies Allergy/AdvReac Type Severity Reaction Status Date / Time No Known Allergies Allergy Verified 03/11/18 11:21 Home Medications Medication Instructions Recorded Confirmed Type prednisone 5 mg PO DAILY 10/23/17 05/08/18 History atorvastatin 10 mg PO QPM 03/11/18 05/08/18 History clonazepam [Klonopin] 1 mg PO TID 03/11/18 05/08/18 History hydroxychloroquine 200 mg PO BID 05/08/18 05/08/18 History sertraline 200 mg PO DAILY 05/08/18 05/08/18 History tizanidine 4 mg PO Q6-8H PRN 05/08/18 05/08/18 History Exam Vital signs: Vital Signs 05/08/18 11:48 05/08/18 13:43 05/08/18 16:00 Temperature 97.9 F Pulse Rate 60 68 66 Respiratory Rate 18 16 Blood Pressure 115/70 113/73 Pulse Oximetry 98 96 100 05/08/18 20:00 05/08/18 22:50 05/09/18 00:00 Temperature 97.8 F 97.7 F Pulse Rate 87 81 67 Respiratory Rate 20 20 Blood Pressure 109/71 112/78 Pulse Oximetry 97 97 05/09/18 04:00 05/09/18 08:00 05/09/18 09:30 Temperature 97.9 F 97.6 F Pulse Rate 99 H 77 Respiratory Rate 18 16 Blood Pressure 124/75 121/76 Pulse Oximetry 95 100 99 Intake & Output 05/08/18 05/09/18 05/09/18 18:59 06:59 18:59 Intake Total 1000 / 1000 1999 Balance 999 Weight 72.575 kg 72.575 kg Intake: IV 999 NS Inj 1,000 ML @ 70 mls/hr IV. 1999 CONT .[id number] EDNA Rx#:[id number] NS Inj 1,000 ML @ Wide Open IV. 999 SIG BOLUS ONE Rx#:[id number] Other: # Voids 3 Weight On Admission 72.575 kg - Constitutional no acute distress, cooperative - Routine HEENT Exam Head: Absent: normocephalic, atraumatic, scalp tenderness Eye: Absent: EOMI, PERRL, nystagmus ENT: Present: mucous membranes moist, external ear normal - Routine Respiratory Exam Present: CTA bilaterally. Absent: accessory muscle use, patient mechanically ventilated, decreased breath sounds, rales, respiratory distress, rhonchi - Routine Cardiovascular Exam Present: RRR. Absent: murmur, gallop, rubs - Routine Abdominal Exam Present: soft. Absent: tenderness, distended, rebound - Routine Extremities Exam Absent: cyanosis, clubbing, edema - Routine Skin Exam Present: intact, dry - Routine Neurological Exam Present: alert, oriented X3, CN II-XII intact, moving all extremities, normal tone, vision grossly intact, hearing grossly intact, normal speech. Absent: sensory deficit, motor deficit, pronator drift, altered mental status, hemineglect, facial asymmetry, tremors Results - Labs Result diagrams: 05/08/18 11:48 05/08/18 11:48 Abnormal lab results 05/08/18 05/08/18 05/08/18 Range/Units 11:48 11:48 11:48 RBC 3.52 L (4.00-5.30) mil/mm3 Hgb 10.3 L (11.6-15.3) gm/dL Hct 30.4 L (35.0-46.0) % Neut % (Auto) 73.0 H (16.0-70.0) % Will[place] % (Auto) 8.4 H (0.0-8.0) % Chloride 109 H (98-107) meq/L Estimated GFR 63 L (>89) mL/min POC Glucose (68-110) mg/dl Random Glucose 112 H (74-106) mg/dL Hemoglobin A1c 6.1 H (4.3-6.0) % Calcium 7.5 L (8.5-10.1) mg/dL Total Bilirubin 0.1 L (0.2-1.0) mg/dL Troponin I Less than 0.02 L (0.02-0.05) ng/mL Total Protein 6.3 L (6.4-8.2) g/dL Albumin 3.1 L (3.4-5.0) g/dL Triglycerides (42-150) mg/dL Urine Mucus (Occasional) /lpf 05/08/18 05/08/18 05/08/18 Range/Units 11:48 12:11 18:09 RBC (4.00-5.30) mil/mm3 Hgb (11.6-15.3) gm/dL Hct (35.0-46.0) % Neut % (Auto) (16.0-70.0) % Will[place] % (Auto) (0.0-8.0) % Chloride (98-107) meq/L Estimated GFR (>89) mL/min POC Glucose 116 H (68-110) mg/dl Random Glucose (74-106) mg/dL Hemoglobin A1c (4.3-6.0) % Calcium (8.5-10.1) mg/dL Total Bilirubin (0.2-1.0) mg/dL Troponin I (0.02-0.05) ng/mL Total Protein (6.4-8.2) g/dL Albumin (3.4-5.0) g/dL Triglycerides 244 H (42-150) mg/dL Urine Mucus Few H (Occasional) /lpf Short CBC 05/08/18 Range/Units 11:48 WBC 7.0 (4.0-11.0) th/mm3 Hgb 10.3 L (11.6-15.3) gm/dL Hct 30.4 L (35.0-46.0) % Plt Count 214 (150-450) th/mm3 BMP 05/08/18 11:48 Sodium 138 Potassium 4.2 Chloride 109 H Carbon Dioxide 22.1 BUN 17 Creatinine 0.90 Calcium 7.5 L Cardiac Enzymes 05/08/18 Range/Units 11:48 Total Creatine Kinase 136 (26-192) U/L Troponin I Less than 0.02 L (0.02-0.05) ng/mL Liver Function 05/08/18 Range/Units 11:48 Total Bilirubin 0.1 L (0.2-1.0) mg/dL AST 19 (15-37) U/L ALT 20 (10-53) U/L Alkaline Phosphatase 116 (45-117) U/L Albumin 3.1 L (3.4-5.0) g/dL Urine 05/08/18 Range/Units 12:11 Urine Color Yellow (Yellw/Straw) Urine Clarity Clear (Clear) Urine pH 6.0 (5.0-8.5) Ur Specific Hellier 1.008 (1.002-1.035) Urine Protein Negative (Neg-Trace) mg/dL Urine Glucose (UA) Negative (Negative) mg/dL - Imaging Impressions Chest X-Ray 05/08/18 11:28 CONCLUSION: 1. Bibasilar streakiness is noted consistent with atelectasis and/or scarring. 2. Cardiomegaly. 3. Degenerative changes and scoliosis of the thoracolumbar spine. Head CT 05/08/18 11:28 CONCLUSION: 1. Negative CT Head non contrast. . . Head CTA 05/08/18 12:53 CONCLUSION: 1. Negative CTA Head. . . Neck CTA 05/08/18 12:53 CONCLUSION: 1. Negative CTA Carotid. Caprini VTE Risk Assessment Caprini VTE Risk Assessment: Moderate/High Risk (score >= 2) Caprini Risk Assessment Model: Point Value = 1 Point Value = 2 Point Value = 3 Point Value = 5 Age 41-60 Minor surgery BMI > 25 kg/m2 Swollen legs Varicose veins or History of unexplained or recurrent spontaneous Oral contraceptives or hormone replacement Sepsis (< 1 month) Serious lung disease, including pneumonia (< 1 month) Abnormal pulmonary function Acute myocardial infarction Congestive heart failure (< 1 month) History of inflammatory bowel disease Medical patient at bed rest Age 61-74 Arthroscopic surgery Major open surgery (> 45 min) Laparoscopic surgery (> 45 min) Malignancy Confined to bed (> 72 hours) Immobilizing plaster cast Central venous access Age >= 75 History of VTE Family history of VTE Factor V Leiden Prothrombin [id number] Lupus anticoagulant Anticardiolipin antibodies Elevated serum homocysteine Heparin-induced thrombocytopenia Other congenital or acquired thrombophilia Stroke (< 1 month) Elective arthroplasty Hip, pelvis, or leg fracture Acute spinal cord injury (< 1 month) Prophylaxis Regimen: Total Risk Factor Score Risk Level Prophylaxis Regimen 0-1 Low Early ambulation 2 Moderate Order ONE of the following: *Sequential Compression Device (SCD) *Heparin 5000 units SQ BID 3-4 Higher Order ONE of the following medications: *Heparin 5000 units SQ TID *Enoxaparin/Lovenox 40 mg SQ daily (WT < 150 kg, CrCl > 30 mL/min) *Enoxaparin/Lovenox 30 mg SQ daily (WT < 150 kg, CrCl > 10-29 mL/min) *Enoxaparin/Lovenox 30 mg SQ BID (WT < 150 kg, CrCl > 30 mL/min) AND/OR *Sequential Compression Device (SCD) 5 or more Highest Order ONE of the following medications: *Heparin 5000 units SQ TID (Preferred with Epidurals) *Enoxaparin/Lovenox 40 mg SQ daily (WT < 150 kg, CrCl > 30 mL/min) *Enoxaparin/Lovenox 30 mg SQ daily (WT < 150 kg, CrCl > 10-29 mL/min) *Enoxaparin/Lovenox 30 mg SQ BID (WT < 150 kg, CrCl > 30 mL/min) AND *Sequential Compression Device (SCD) Assessment and Plan - Assessment (1) Neurocognitive deficits Code(s): R29.818 - Other symptoms and signs involving the nervous system; R41.89 - Other symptoms and signs involving cognitive functions and awareness Status: Acute (2) Rheumatoid arthritis Code(s): M06.9 - Rheumatoid arthritis, unspecified Status: Acute (3) Anxiety Code(s): F41.9 - Anxiety disorder, unspecified Status: Acute - Assessment and Plan 67 yr old F with rheumatoid arthritis, PTSD, anxiety presented to the ED from primary care office for neuro symptoms. TIA/Stroke -Consult to neurology, appreciate recommendations. her Echo is pending but otherwise her tests have been fine -CT of the head showed no acute hemorrhage -CTA of the head and neck negative -MR head ordered, pt refuses this test -Echo ordered -Head of the bed flat for 12 hours -Continuous telemetry -Neurochecks every 2 hours for the first 12 hours and then every 4 hours -ASA 325 daily -Statin therapy- patient previously unable to tolerate atorvastatin due to muscle pain, has been tolerating pravastatin 10mg at home, will increase to 40mg -HbA1c and lipid panel ordered -Speech therapy: Evaluate and treat -Bedside swallow study ordered -Permissive hypertension to 220/120 for 24h -IV Vasotec as needed -PT/OT/ST Rheumatoid Arthritis -hydroxychloroquine 200mg PO BID -Prednisone 5mg PO daily Anxiety -Continue clonazepam 1mg PO TID Fluids: NS at 70 cc/h Electrolytes: monitor and replete as needed Nutrition: eating regular diet GI prophylaxis: not indicated VTE prophylaxis: SCDs, start lovenox today she has had a TIA, fortunately not a stroke. she very much wants to go home today. will be sure her tests are normal. explained to her that a TIA can recur or even be a harbinger of a CVA. she asked about cosmetic surgery, liposuction that is scheduled on the 21 of May and it was recommended to postpone that as she should not stop her 'blood thinner" that quick and would be at risk. H&P: Quality - VTE Deep Vein Thrombosis/Pulmonary Embolism Present on Admission: No
[2018-05-09 11:59] VITALS: BP 142/72; PULSE 82; RESP 15; TEMP 98.1; O2SAT 97
--- NOTE | 2018-05-09 16:05 | P.AMA ---
AMA Note - Diagnosis (1) Neurocognitive deficits (2) Rheumatoid arthritis (3) Anxiety AMA Statement: Patient Ashley Shah has decided to leave the hospital against medical advice. This patient has the capacity to refuse care and understands the risks of leaving, including permanent disability and/or , and has had an opportunity to ask questions about his/her condition. The patient has been informed that she may return for care at any time, and follow up has been arranged/advised. Discharge Disposition: Against Medical Advice Patient Condition on Discharge: Stable
--- NOTE | 2018-05-09 16:07 | ECHRPT ---
Indication: cva/tia CONCLUSIONS Normal left ventricular size. Wall thickness is normal. The left ventricular systolic function is low normal with an estimated ejection fraction in the rang e of 50- 55%. Trace mitral valve regurgitation. The estimated pulmonary arterial pressure is 55 mmHg. There is mild to moderate tricuspid valve regurgitation. BP: / HR: Rhythm: MEASUREMENTS (Male / Female) Normal Values Technical Quality:Technically difficult study 2D ECHO LV Diastolic Diameter PLAX 5.1 cm 4.2 - 5.9 / 3.9 - 5.3 cm LV Systolic Diameter PLAX 4.0 cm IVS Diastolic Thickness 0.8 cm 0.6 - 1.0 / 0.6 - 0.9 cm LVPW Diastolic Thickness 0.8 cm 0.6 - 1.0 / 0.6 - 0.9 cm LV Relative Wall Thickness 0.3 RV Internal Dim ED PLAX 2.8 cm LVOT Diameter 2.0 cm Aortic Root Diameter 2.9 cm LA Systolic Diameter LX 3.5 cm 3.0 - 4.0 / 2.7 - 3.8 cm M-MODE Aortic Root Diameter MM 2.3 cm LA Systolic Diameter MM 3.5 cm LA Ao Ratio MM 1.5 AV Cusp Separation MM 1.7 cm DOPPLER AV Peak Velocity 165.0 cm/s AV Peak Gradient 10.9 mmHg LVOT Peak Velocity 110.0 cm/s LVOT Peak Gradient 4.8 mmHg AV Area Cont Eq pk 2.1 cm Mitral E Point Velocity 81.4 cm/s Mitral A Point Velocity 104.0 cm/s Mitral E to A Ratio 0.8 LV E' Lateral Velocity 9.2 cm/s Mitral E to LV E' Lateral Ratio 8.9 LV E' Septal Velocity 10.0 cm/s Mitral E to LV E' Septal Ratio 8.1 TR Peak Velocity 334.0 cm/s TR Peak Gradient 44.6 mmHg Right Atrial Pressure 10.0 mmHg Pulmonary Artery Systolic Pressu 54.6 mmHg Right Ventricular Systolic Press 54.6 mmHg PV Peak Velocity 124.0 cm/s PV Peak Gradient 6.2 mmHg FINDINGS LEFT VENTRICLE Normal left ventricular size. Wall thickness is normal. The left ventricular systolic function is low normal with an estimated ejection fraction in the rang e of 50- 55%. RIGHT VENTRICLE Normal right ventricular size and systolic function. LEFT ATRIUM The left atrial size is normal. RIGHT ATRIUM The right atrial size is normal. ATRIAL SEPTUM Normal atrial septal thickness without atrial level shunting by limited color doppler interrogation. AORTA The aortic root and proximal ascending aorta are normal in size on limited imaging. MITRAL VALVE Trace mitral valve regurgitation. AORTIC VALVE Trileaflet aortic valve. No aortic valve stenosis or regurgitation. TRICUSPID VALVE The estimated pulmonary arterial pressure is 55 mmHg. There is mild to moderate tricuspid valve regurgitation. PULMONARY VALVE No pulmonary valve regurgitation or stenosis. VESSELS The inferior vena cava is normal in size. PERICARDIUM No pericardial effusion. Oziel Russell MD, FACC, [facility] [place] ([place]ronically Signed) Final Date:09 May 2018 16:07
--- NOTE | 2018-05-09 17:13 | ECG ---
Date Performed: 05/08/2018 Time Performed: 11:57:33 PTAGE: 67 years EKG: Sinus rhythm PROLONGED QT INTERVAL ABNORMAL ECG NO PREVIOUS TRACING DOCTOR: Oziel Russell Interpretating Date/Time 05/09/2018 17:10:04
--- NOTE | 2018-05-10 10:11 | P.CONREH ---
History of Present Illness Primary Care Provider: UNKNOWN [facility] History History Provided By: Patient Medical History Medical History Aftercare following left ankle joint replacement surgery (Acute) Anxiety (Acute) Depression (Acute) History of fracture of ankle (Acute) History of thyroid nodule (Acute) Rheumatoid arthritis (Acute) Surgical History Surgical History History of 2 sections (Acute) History of bilateral oophorectomy (Acute) History of hernia repair (Acute) History of left hip replacement (Acute) Family History Family History Father No problems noted. Tobacco History Second Hand Smoke Exposure: No Tobacco Use In Past 30 Days: No Smoking Status: Former smoker Tobacco Type: Cigarettes Alcohol History How Often Do You Have a Drink Containing Alcohol: 2 to 4 times a month Substance Use History Substance History: No History of Abuse Travel History Recent Travel in the [facility] Within the Last 8 Weeks: No Recent Travel Out of the Country Within the Last 8 Weeks: No Immunization History Tetanus Immunization: <5 Years Medications and Allergies Allergies Allergy/AdvReac Type Severity Reaction Status Date / Time No Known Allergies Allergy Verified 03/11/18 11:21 Home Medications Medication Instructions Recorded Confirmed Type prednisone 5 mg PO DAILY 10/23/17 05/08/18 History atorvastatin 10 mg PO QPM 03/11/18 05/08/18 History clonazepam [Klonopin] 1 mg PO TID 03/11/18 05/08/18 History hydroxychloroquine 200 mg PO BID 05/08/18 05/08/18 History sertraline 200 mg PO DAILY 05/08/18 05/08/18 History tizanidine 4 mg PO Q6-8H PRN 05/08/18 05/08/18 History Exam Physical Examination Vital Signs / I&O: Vital Signs 05/09/18 11:58 Temperature 98.1 F Pulse Rate 82 Respiratory Rate 15 Blood Pressure 142/72 H Pulse Oximetry 97 Intake & Output 05/09/18 05/10/18 05/10/18 18:59 06:59 18:59 Intake Total 1999 Balance 1999 Intake: IV 1999 NS Inj 1,000 ML @ 70 mls/hr IV. 1999 CONT .[id number] EDNA Rx#:[id number] Intake & Output 05/08/18 05/09/18 05/10/18 05/11/18 06:59 06:59 06:59 06:59 Intake Total 999 Balance 999 Weight 72.575 kg Results Labs CBC & Chem 7: 05/08/18 11:48 05/08/18 11:48 Assessment and Plan (1) Neurocognitive deficits: Status: Acute Code(s): R29.818 - Other symptoms and signs involving the nervous system; R41.89 - Other symptoms and signs involving cognitive functions and awareness Plan Consult received per stroke order set. EMR reviewed. Neurology consult reviewed and indicates TIA. Consult deferred due to no acute stroke. Please reconsult as appropriate. Thank you.
== END 2018-05-09 15:45 | disposition left against medical advice (07) | DRG 69 ==
LOC: NEPI 10:55 → NEDA 10:55 → OBSVTOIN 13:40 → NEDA 15:48 → NEPHCDU 15:53
PROVIDERS: ADMIT Family Medicine; ATTEND Family Medicine
DX: G45.9 Transient cerebral ischemic attack, unspecified; R47.81 Slurred speech; I95.9 Hypotension, unspecified; M06.9 Rheumatoid arthritis, unspecified; H53.8 Other visual disturbances; Z87.891 Personal history of nicotine dependence; G47.00 Insomnia, unspecified; Z96.642 Presence of left artificial hip joint; R29.705 NIHSS score 5; F32.9 Major depressive disorder, single episode, unspecified; F43.10 Post-traumatic stress disorder, unspecified
CPT/HCPCS: 70450; 70496; 70498; 71010; 71045; 80053; 80061; 80307; 81001; 82550; 82948; 82962; 83036; 83735; 84443; 84484; 85025; 85610; 85730; 90760; 92610; 93005; 93306; 96360; 97162; 97165; 99285; G0195; G8987; G8988; G8989; G8996; G8997; G8998; J1650; J7030; J7506; J7512; P9612; Q9967